=== PATIENT | male | born 1990 | race Caucasian/White ===

== ENCOUNTER 2019-09-21 09:51 | Emergency (ER) | payer MEDICAID, OTHER ==
[~2019-09-21] VITALS: Ht 193 cm; Wt 113.9 kg
[2019-09-21 10:12] VITALS: BP 154/90
--- NOTE | 2019-09-21 10:13 | NUR ---
Patient discharged to home in stable conditon. Written and verbal after care instructions given. Patient verbalizes understanding of instructions.
== END 2019-09-21 10:13 | disposition home or self-care (01) ==
LOC: ER 09:51
DX: H10.9 Unspecified conjunctivitis (principal); A49.02 Methicillin resistant Staphylococcus aureus infection, unspecified site; J45.909 Unspecified asthma, uncomplicated; Z88.8 Allergy status to other drugs, medicaments and biological substances
CPT/HCPCS: A4663